=== PATIENT | male | born 1985 | race Caucasian/White ===

== ENCOUNTER → 2017-03-20 | Outpatient (CLI) | payer BC ==
--- NOTE | ~2017-03-20 | TM ---
[id number] NAME: ARAVIND VINCENT JR MR#: [id number] EXAM Treadmill stress test. PROCEDURE Resting heart rate 80, resting blood pressure 122/78 mmHg. Baseline EKG shows normal sinus rhythm. No significant ST-T wave changes. The patient was made to exercise on a standard Elijah protocol. Total exercise time was 12 minutes, completing stage 4 of a standard Elijah protocol. The test was stopped because the target heart rate was achieved. No complaints of chest pain or shortness of breath. Maximum heart rate obtained was 178, which was 94% of the maximum predicted heart rate. Maximum blood pressure obtained was 180/[address]-T wave changes suggestive of ischemia. No arrhythmias noted. CONCLUSION 1. Excellent exercise tolerance for age. 2. There is no clinical, hemodynamic or EKG evidence of ischemia at excellent workload (94% of maximum predicted heart rate, 12.8 METS). 3. Normal heart rate and blood pressure response. 4. Normal regular treadmill stress test. Dictated by.Nelli Nicholson M.D. JOB #: [id number]
== END | disposition home or self-care (01) ==
LOC: CEKG 09:40
DX: R07.89 Other chest pain (principal)
CPT/HCPCS: 93017